=== PATIENT | female | born 1995 | race African-American/Black ===

== ENCOUNTER 2024-05-09 04:02 | Emergency (ER) | payer SELFPAY ==
[~2024-05-09] VITALS: Ht 170.2 cm; Wt 91.0 kg
[2024-05-09 04:10] VITALS: O2SAT 100
[2024-05-09] MEDS: KETOROLAC 15MG/ML VIAL IM ONE (04:59)
[2024-05-09 05:00] VITALS: BP 139/80; PULSE 68; RESP 17; TEMP 36.78072; O2SAT 100
[2024-05-09] MEDS ORDERED: NAPR-1176 MT (05:09)
[2024-05-09] MEDS ORDERED: LIDO700A15 TP (05:09)
== END 2024-05-09 05:54 | disposition home or self-care (01) ==
LOC: ER 04:02
DX: S60.221A Contusion of right hand, initial encounter (principal); Z88.0 Allergy status to penicillin; Z79.1 Long term (current) use of non-steroidal anti-inflammatories (NSAID); X58.XXXA Exposure to other specified factors, initial encounter; Y93.89 Activity, other specified; Y92.89 Other specified places as the place of occurrence of the external cause; Y99.8 Other external cause status
CPT/HCPCS: 99283; 81025; 73130; 96372; J1885